=== PATIENT | male | born 1990 | race Hispanic/Latino ===

== ENCOUNTER 2022-04-30 10:21 | Emergency (ER) | payer OTHER ==
[~2022-04-30] VITALS: Ht 167.6 cm; Wt 99.8 kg
--- NOTE | 2022-04-30 10:22 | NUR ---
ARRIVAL PT ARRIVED AMBULATORY TO ED 4 WITH [facility] C/O A LACERATION ON THE LEFT DE LEON AFTER HITTING ON THE METAL BED AT THE [facility]. VITALS TAKEN AND NOTIFIED.
[2022-04-30 10:23] VITALS: BP 151/94
[2022-04-30 10:26] VITALS: BP 151/94
[2022-04-30] MEDS ORDERED: TRIPLE ANTIBIOTIC OINTMENT TP ONE (10:34)
[2022-04-30] MEDS ORDERED: BOOSTRIX IM ONE ×2 (10:35→11:00)
--- NOTE | 2022-04-30 10:38 | ER.PDOC ---
General Chief Complaint: Extremities Stated Complaint: LEG LAC Time seen by MD: 10:35 Source: patient Exam Limitations: no limitations History of Present Illness Initial Comments [facility] because of laceration of the left leg. Patient hit is left rios against a metal. Onset: just prior to arrival Context: laceration Severity: moderate Allergies: Coded Allergies: No Known Allergies (Unverified , 04/30/22) Past Medical History Medical History: no pertinent history Surgical History: no surgical history Family History Significant Family History: no pertinent family hx Social History Smoking: non-smoker Alcohol Use: heavy Drug Use: none Review of Systems Constitutional: no symptoms reported EENTM: no symptoms reported Respiratory: no symptoms reported Cardiovascular: no symptoms reported Gastrointestinal: no symptoms reported Skin: see HPI All Other Systems: Reviewed and Negative Physical Exam General Appearance: Alert, No Apparent Distress Foot: nml inspection, non-tender, nml color/temp, skin intact Ankle: nml inspection, non-tender, nml ROM, no joint swelling, skin intact Knee: nml inspection, non-tender, nml ROM, no joint swelling Thigh/Hip: nml inspection 1 - Lac Gait: normal Neuro/Vasc/Tendon: sensation nml, motor nml, no vascular compromise, tendon function nml Skin: warm/dry Head/ENT: nml inspection, pharynx nml Neck/Back: nml inspection, non-tender Abdomen: non-tender, pelvis stable ED LACERATION WOUND REPAIR # of Wounds/Lacerations Presen: 1 Wound Location & Length (Requi: Left leg Wound Length (cm): 4 Wound cleaned: betadine Anesthesia: 1% Lidocaine Wound's Depth, Shape: irregular Irrigated w/ Saline (ccs): 40 Wound Repaired With: sutures Suture Size/Type: 4:0, ethilon Suture Style: interupted Number of Sutures: 7 Sterile Dressing Applied?: Yes Results/Orders Results/Orders Orders - CHARLETTE NAILS MD Diph,Pertterence(Acell),Tet Vac/Pf (Boostrix (04/30/22 11:00) Vital Signs Date Time Temp Pulse Resp B/P (MAP) Pulse Ox O2 Delivery O2 Flow Rate FiO2 04/30/22 10:26 98.3 118 18 151/94 (113) 92 Room Air* 0 21 04/30/22 10:23 98.3 118 18 04/30/22 10:23 98.3 118 18 151/94 (113) 92 Room Air* 0 21 04/30/22 10:23 98.3 118 18 92 Progress Progress Patient received a tetanus shot. ER DEPART Departure Time of Disposition: 10:37 Disposition: 01 HOME / SELF CARE / HOMELESS Impression: Primary Impression: Laceration of leg, left Condition: Improved Additional Instructions: Keflex Tylenol Apply Neosporin daily Remove sutures in 10 days at your PCP or ED Return to ED sooner if any concerns Duration or Time Spent with Pa: 10 min Problem Qualifiers Primary Impression: Laceration of leg, left Encounter type: initial encounter Qualified Codes: S81.812A - Laceration without foreign body, left lower leg, initial encounter CHARLETTE NAILS MD Apr 30, 2022 10:38
== END 2022-04-30 10:43 | disposition home or self-care (01) ==
LOC: ER 10:21
DX: S81.812A Laceration without foreign body, left lower leg, initial encounter (principal); X58.XXXA Exposure to other specified factors, initial encounter; Y93.89 Activity, other specified; Y92.89 Other specified places as the place of occurrence of the external cause; Y99.8 Other external cause status
CPT/HCPCS: 12002; 90471; 90715; 99283